=== PATIENT | female | born 1930 | race Caucasian/White ===

== ENCOUNTER → 2016-12-23 | Outpatient (CLI) | payer MEDICARE | LOC: HEART 5 08:46 | DX: I47.1 Supraventricular tachycardia (principal); E78.5 Hyperlipidemia, unspecified; I10 Essential (primary) hypertension; I48.0 Paroxysmal atrial fibrillation; R00.2 Palpitations; Z79.899 Other long term (current) drug therapy | CPT/HCPCS: 94060; 94729 ==

== ENCOUNTER → 2021-01-10 | Outpatient (CLI) | payer MEDICARE | LOC: HEART 5 09:03 | DX: R06.02 Shortness of breath (principal); Z79.899 Other long term (current) drug therapy | CPT/HCPCS: 94010; 94729 ==

== ENCOUNTER → 2021-09-10 | Outpatient (CLI) | payer MEDICARE | LOC: CT 12:25 | DX: R10.84 Generalized abdominal pain (principal); R63.4 Abnormal weight loss; R13.14 Dysphagia, pharyngoesophageal phase; K83.8 Other specified diseases of biliary tract; K57.30 Diverticulosis of large intestine without perforation or abscess without bleeding | CPT/HCPCS: 36415; 80076; 82565; 84520; Q9967 ==

== ENCOUNTER → 2021-10-02 | Outpatient (CLI) | payer MEDICARE | LOC: RAD 09:08 | DX: R13.14 Dysphagia, pharyngoesophageal phase (principal); R10.84 Generalized abdominal pain; R63.4 Abnormal weight loss; K21.9 Gastro-esophageal reflux disease without esophagitis | CPT/HCPCS: 74221 ==

== ENCOUNTER → 2021-10-16 | Day surgery (SDC) | payer MEDICARE ==
[~2021-10-16] MED LIST: AMIODARONE HCL200 MG PO; AVASTIN; B-121000 MCG PO; CENTRUM SILVER 50+ PO; FAMOTIDINE20 MG PO; LISINOPRIL20 MG PO; POTASSIUM CHLO10 ME1 PO; SIMBRINZA 1%-0.28 ML OS; TOPROL XL 25 MG25 MG PO; XARELTO15 MG PO
== END | disposition home or self-care (01) ==
LOC: OR 08:43
DX: K22.4 Dyskinesia of esophagus (principal); I10 Essential (primary) hypertension; E78.00 Pure hypercholesterolemia, unspecified; K59.09 Other constipation; R63.4 Abnormal weight loss; K21.9 Gastro-esophageal reflux disease without esophagitis; Z68.1 Body mass index [BMI] 19.9 or less, adult; Z79.02 Long term (current) use of antithrombotics/antiplatelets; Z79.899 Other long term (current) drug therapy; Z20.822 Contact with and (suspected) exposure to COVID-19
CPT/HCPCS: J2001; J2704; J7040